=== PATIENT | female | born 1995 | race African-American/Black ===

== ENCOUNTER 2021-06-15 13:08 | Observation (INO) | payer MEDICAID ==
[~2021-06-15] VITALS: Ht 170.2 cm; Wt 83.0 kg
[2021-06-15] MEDS: LACTATED RINGERS 1,000 ML IV SCH ×2 (13:45→15:03)
[2021-06-15] MEDS ORDERED: CARBOPROST TROMETHAMINE 250 MCG/ML AMPUL IM PRN (14:15)
[2021-06-15] MEDS ORDERED: DEXT 5%/LR + PITOCIN 20UNITS/L 1,000 ML IV SCH (14:15)
[2021-06-15] MEDS ORDERED: RHO(D) IMMUNE GLOBULIN 300 MCG/SYR IM SCH (14:15)
[2021-06-15] MEDS ORDERED: NALOXONE HCL 0.4 MG/ML 1ML VIAL IM PRN (14:15)
[2021-06-15] MEDS ORDERED: BUTORPHANOL TARTRATE 2 MG/ML VIAL IV PRN (14:15)
[2021-06-15] MEDS ORDERED: DEXT 5%/LACTATED RINGERS 1,000 ML IV SCH (14:15)
[2021-06-15] MEDS ORDERED: LIDOCAINE HCL 1% 20ML VIAL (Pyxis) INJ INFIL SCH (14:15)
[2021-06-15] MEDS ORDERED: MISOPROSTOL 100MCG TABLET VG SCH (14:15)
[2021-06-15] MEDS ORDERED: AMPICILLIN 2GM in NS 100ML 100 ML IV ONE (14:30)
[2021-06-15] MEDS ORDERED: ROPIVACAINE HCL/PF EPIDURAL 200 ML EPI SCH (14:30)
[2021-06-15] MEDS ORDERED: BETAMETHASONE ACET/BETAMET 30 MG/5 ML VIAL IM ONE (15:00)
[2021-06-15] MEDS ORDERED: TERBUTALINE SULFATE 1MG/ML VIAL SUBCUT PRN (15:00)
[2021-06-15] MEDS ORDERED: AMPICILLIN 2,000 MG in SODIUM CHLORIDE 0.9% 100 ML IV SCH (15:00)
[2021-06-15 15:08] LABS: BASOPHILS % 0.3 % (0.0-2.0); HEMATOCRIT. 35.7 % (36.0-48.0); HEMOGLOBIN. 11.9 g/dL (12.0-16.0); LYMPHOCYTES % 17.1 % (20.0-50.0); MEAN CORPUSCULAR HEMOGLOBIN 30.2 pg (28.0-32.0); MEAN CORPUSCULAR VOLUME 90.6 fL (81.0-99.0); MEAN PLATELET VOLUME 9.1 fl (7.4-10.4); MONOCYTES % 6.7 % (2.0-8.0); NEUTROPHILS % 73.9 % (40.0-76.0); PLATELET 290 x1000/uL (130-400); RED BLOOD CELL COUNT 3.93 mill/uL (4.2-5.4); RED CELL DISTRIBUTION WIDTH 12.9 % (11.6-14.6)
[2021-06-15 15:17] LABS: PARTIAL THROMBOPLASTIN TIME 29.3 sec (23.4-31.0); PROTHROMBIN TIME 10.5 sec (9.6-11.0)
[2021-06-15 15:24] LABS: CLARITY URINE CLEAR (CLEAR); COLOR URINE YELLOW (YELLOW); KETONES URINE 1+ (NEGATIVE); LEUKOCYTE ESTERASE URINE 1+ (NEGATIVE); NITRITE URINE NEGATIVE (NEGATIVE); OCCULT BLOOD URINE NEGATIVE (NEGATIVE); PH URINE 7.5 (4.5-8.0); PROTEIN URINE NEGATIVE (NEGATIVE); SPECIFIC GRAVITY URINE 1.009 (1.005-1.030); UROBILINOGEN URINE 0.2 E.U./dL (0.2-1.0)
[2021-06-15 15:59] LABS: *AMPHETAMINES SCREEN URINE NEGATIVE (NEGATIVE); *BARBITURATES SCREEN URINE NEGATIVE (NEGATIVE); *BENZODIAZEPINES SCREEN URINE NEGATIVE (NEGATIVE); *COCAINE SCREEN URINE NEGATIVE (NEGATIVE); METHADONE URINE SCREEN NEGATIVE (NEGATIVE)
[2021-06-15 16:00] LABS: CANNABINOID URINE SCREEN NEGATIVE (NEGATIVE); OPIATES URINE SCREEN NEGATIVE (NEGATIVE); PHENCYCLIDINE URINE SCREEN NEGATIVE (NEGATIVE)
[2021-06-15 16:13] LABS: HEPATITIS B SURFACE ANTIGEN NEGATIVE
[2021-06-15] MEDS ORDERED: AMPICILLIN 1,000 MG in SODIUM CHLORIDE 0.9% 50 ML IV SCH (22:00)
[2021-06-17 07:12] LABS: HIV SCREEN 4G Non Reactive (Non Reactive)
== END 2021-06-15 17:00 | disposition left against medical advice (07) ==
LOC: INTOOBSV 13:08 → OBSVTOIN 13:08 → 8 EST LDRP 13:08
PROVIDERS: ADMIT Obstetrics & Gynecology; ATTEND Obstetrics & Gynecology
DX: O26.893 Other specified pregnancy related conditions, third trimester (principal); R10.9 Unspecified abdominal pain; Z20.822 Contact with and (suspected) exposure to COVID-19; Z79.899 Other long term (current) drug therapy; Z3A.34 34 weeks gestation of pregnancy
CPT/HCPCS: 36415; 59025; 76805; 76817; 80305; 81003; 85025; 85610; 85730; 86592; 86593; 86762; 86780; 86850; 86900; 86901; 87340; 87389; 87426; 96360; 96361; G0378; J0702; J3105; 99281; J0290; J7050; J7120; J7121